=== PATIENT | female | born 1960 ===

== ENCOUNTER 2018-08-29 10:12 | Outpatient (CLI) | payer OTHER | END 2018-08-29 10:13 | disposition home or self-care (01) | LOC: C.MAMMO 10:12 | DX: Z12.31 Encounter for screening mammogram for malignant neoplasm of breast (principal) ==

== ENCOUNTER 2018-08-30 07:55 | Outpatient (CLI) | payer OTHER | END 2018-08-30 07:56 | disposition home or self-care (01) | LOC: C.LAB 07:55 | DX: E11.9 Type 2 diabetes mellitus without complications (principal); I10 Essential (primary) hypertension ==